=== PATIENT | male | born 1950 | race Caucasian/White ===

== ENCOUNTER 2020-02-01 06:59 | Emergency (ER) | payer MEDICARE ==
[2020-02-01] MEDS: Ketorolac 60 MG/2 ML SDV IM ONE (08:26)
--- NOTE | 2020-02-01 11:09 | CR ---
DATE OF SERVICE: 02/01/20 CLINICAL DATA: pain PELVIS AND RIGHT HIP No priors. 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 No acute fracture or dislocation. No lytic or blastic bone lesions. [id number] [facility] [place]
== END 2020-02-01 08:55 | disposition home or self-care (01) ==
LOC: LB.ED 06:59
DX: M16.11 Unilateral primary osteoarthritis, right hip (principal); F17.200 Nicotine dependence, unspecified, uncomplicated
CPT/HCPCS: 36415; 73502; 85025; 96372; 99283; J1885

== ENCOUNTER 2022-05-19 05:07 | Emergency (ER) | payer MEDICARE ==
[2022-05-19] MEDS: Ketorolac 60 MG/2 ML SDV IVPUSH ONE (06:33)
[2022-05-19] MEDS: Ketorolac 60 MG/2 ML SDV ONE (06:53)
[2022-05-19 07:21] VITALS: BP 168/72; PULSE 81
== END 2022-05-19 08:12 | disposition home or self-care (01) ==
LOC: LB.ED 05:07
DX: R07.89 Other chest pain (principal); I10 Essential (primary) hypertension; K21.9 Gastro-esophageal reflux disease without esophagitis; F17.200 Nicotine dependence, unspecified, uncomplicated; Z79.899 Other long term (current) drug therapy
CPT/HCPCS: 36415; 71046; 80048; 84484; 85025; 85379; 93005; 96374; 99283; 99285-25; A0425; A0429; J1885

== ENCOUNTER 2024-10-03 22:42 | Emergency (ER) | payer MEDICARE ==
[2024-10-03 23:39] LABS: BASOPHILS ABSOLUTE AUTO 0.05 K/uL (0.02-0.10); BASOPHILS PERCENT AUTO 0.3 % (0.0-0.5); EOSINOPHILS ABSOLUTE AUTO 0.28 K/uL (0.04-0.40); EOSINOPHILS PERCENT AUTO 1.7 % (1.0-5.0); LYMPHOCYTES ABSOLUTE AUTO 0.70 K/uL (1.50-4.00); LYMPHOCYTES PERCENT AUTO 4.2 % (20.0-40.0); MEAN PLATELET VOLUME 9.6 fL (6.0-10.0); MONOCYTES ABSOLUTE AUTO 1.97 K/uL (0.20-0.80); MONOCYTES PERCENT AUTO 11.9 % (3.0-10.0); NEUTROPHILS ABSOLUTE AUTO 13.50 K/uL (2.00-7.50); NEUTROPHILS PERCENT AUTO 81.9 % (45.0-70.0); PLATELET COUNT,PLT 257 K/uL (150-400); RED BLOOD CELL COUNT 4.26 M/uL (4.50-6.50); RED CELL DISTRIBUTION WIDTH 12.9 % (11.0-16.0); WHITE BLOOD CELL COUNT,WBC 16.5 K/uL (4.0-11.0)
[2024-10-03 23:59] LABS: A/G RATIO 0.7 (0.8-2.0); ALANINE AMINOTRANSFERASE,ALT 15.0 U/L (12-78); ASPARTATE AMNIOTRANSFERASE,AST 11.0 U/L (15-37); BILIRUBIN TOTAL 0.6 mg/dL (0.0-1.0); BLOOD UREA NITROGEN,BUN 15.0 mg/dL (8-26); CARBON DIOXIDE,CO2 27.8 mmol/L (21.0-32.0); CHLORIDE,CL 103.0 mmol/L (98-107); CREATININE 0.71 mg/dL (0.70-1.30); EST CRCL DRUG DOSING (CG) 94.25 mL/min; ESTIMATED GFR 96.0 mL/min (>60); GLUCOSE RANDOM 121.0 mg/dL (74-100); POTASSIUM,K 3.5 mmol/L (3.5-5.1); PROTEIN TOTAL,TP 6.7 g/dL (6.4-8.2); SODIUM,NA 139.0 mmol/L (136-145)
[2024-10-04] MEDS: Sodium Chloride 0.9% 50 ML SDV FLUSH ONE (00:50)
[2024-10-04] MEDS: Iopamidol 612 MG/ML 100 ML Bottle IV SCH (00:50)
[2024-10-04] MEDS ORDERED: Ondansetron 4 MG/2 ML SDV IVPUSH PRN (03:35)
[2024-10-04 07:15] LABS: APPEARANCE,URINE CLEAR (CLEAR); GLUCOSE,URINE NEGATIVE (NEGATIVE); OCCULT BLOOD,URINE NEGATIVE (NEGATIVE)
[2024-10-04] MEDS: D5 1/2 NS w/ 20 mEq/L KCl 1,000 ML IV SCH (10:16)
[2024-10-04 10:42] LABS: BLOOD UREA NITROGEN,BUN 11.0 mg/dL (8-26); CARBON DIOXIDE,CO2 26.7 mmol/L (21.0-32.0); CHLORIDE,CL 103.0 mmol/L (98-107); CREATININE 0.63 mg/dL (0.70-1.30); EST CRCL DRUG DOSING (CG) 106.22 mL/min; ESTIMATED GFR 100.0 mL/min (>60); GLUCOSE RANDOM 97.0 mg/dL (74-100); POTASSIUM,K 3.2 mmol/L (3.5-5.1); SODIUM,NA 138.0 mmol/L (136-145)
== END 2024-10-04 16:00 ==
LOC: LB.ED 22:42
DX: K80.00 Calculus of gallbladder with acute cholecystitis without obstruction (principal); I10 Essential (primary) hypertension; K21.9 Gastro-esophageal reflux disease without esophagitis; Z79.899 Other long term (current) drug therapy
CPT/HCPCS: 36415; 71045; 74177; 80048; 80053; 81003; 83690; 85025; 96361; 96365; 96366; 96367; 96375; 96376; 99283; 99285-25; A9270-GY; J1171; J2543; J3480; J7030; Q9967